=== PATIENT | female | born 1955 ===

== ENCOUNTER 2019-10-06 09:36 | Outpatient (CLI) | payer OTHER | END 2019-10-06 09:37 | disposition home or self-care (01) | LOC: RX STUDY 09:36 | DX: R13.19 Other dysphagia (principal) ==

== ENCOUNTER 2020-09-21 08:00 | Outpatient (CLI) | payer OTHER | END 2020-09-21 12:00 | disposition home or self-care (01) | LOC: PPH VACUNA 08:00 | PROVIDERS: ATTEND Emergency Medicine Pediatric Emergency Medicine | DX: Z23 Encounter for immunization (principal) ==

== ENCOUNTER 2021-04-19 08:00 | Outpatient (CLI) | payer OTHER | END 2021-04-19 08:30 | disposition home or self-care (01) | LOC: PPH VACUNA 08:00 | PROVIDERS: ATTEND Emergency Medicine Pediatric Emergency Medicine | DX: Z23 Encounter for immunization (principal) ==

== ENCOUNTER 2022-05-22 11:18 | Outpatient (CLI) | payer OTHER | END 2022-05-22 11:28 | disposition home or self-care (01) | LOC: PPH VACUNA 11:18 | PROVIDERS: ATTEND Emergency Medicine Pediatric Emergency Medicine | DX: Z23 Encounter for immunization (principal) ==